=== PATIENT | female | born 1955 | race Caucasian/White ===

== ENCOUNTER → 2017-02-11 | Outpatient (CLI) | payer OTHER | LOC: FIMAGING 10:29 | PROVIDERS: ATTEND Obstetrics & Gynecology | DX: Z13.820 Encounter for screening for osteoporosis (principal); M85.80 Other specified disorders of bone density and structure, unspecified site ==

== ENCOUNTER → 2017-06-05 | Outpatient (CLI) | payer OTHER | LOC: FIMAGING 07:54 | PROVIDERS: ATTEND Orthopaedic Surgery Foot and Ankle Surgery | DX: S93.491D Sprain of other ligament of right ankle, subsequent encounter (principal); M95.9 Acquired deformity of musculoskeletal system, unspecified; M66.88 Spontaneous rupture of other tendons, other sites; M25.571 Pain in right ankle and joints of right foot; R60.9 Edema, unspecified; R93.6 Abnormal findings on diagnostic imaging of limbs ==